=== PATIENT | male | born 1950 | race Caucasian/White ===

== ENCOUNTER → 2018-10-19 08:25 | Outpatient (CLI) | payer MEDICARE, SELFPAY ==
[2018-10-19 10:01] LABS: Prostate Specific Antigen Scrn 0.408 ng/mL (0.1-4.0)
== END ==
PROVIDERS: PCP Family Medicine; Visit Provider Family Medicine
DX: Z12.5 Encounter for screening for malignant neoplasm of prostate (principal)
CPT/HCPCS: 36415; G0103

== ENCOUNTER → 2019-10-25 09:02 | Outpatient (CLI) | payer MEDICARE, SELFPAY ==
[2019-10-25 09:56] LABS: Cholesterol 205 mg/dL (140-199); Glucose 84 mg/dL (80-110); HDL Cholesterol 52 mg/dL (40-60); LDL Cholesterol Calculated 142 mg/dL (<100); Triglycerides 53 mg/dL (35-150)
[2019-10-25 10:27] LABS: Prostate Specific Antigen Scrn 0.406 ng/mL (0.1-4.0)
== END ==
PROVIDERS: PCP Family Medicine; Visit Provider Family Medicine
DX: Z12.5 Encounter for screening for malignant neoplasm of prostate (principal); E78.00 Pure hypercholesterolemia, unspecified
CPT/HCPCS: 36415; 80061; 82947; G0103

== ENCOUNTER → 2020-11-04 09:12 | Outpatient (CLI) | payer MEDICARE, SELFPAY ==
[2020-11-04 10:10] LABS: Cholesterol 207 mg/dL (140-199); Glucose 98 mg/dL (80-110); HDL Cholesterol 66 mg/dL (40-60); LDL Cholesterol Calculated 131 mg/dL (<100); Triglycerides 50 mg/dL (35-150)
== END ==
PROVIDERS: PCP Family Medicine; Referring Provider Family Medicine; Visit Provider Family Medicine
DX: Z13.1 Encounter for screening for diabetes mellitus (principal); Z13.220 Encounter for screening for lipoid disorders
CPT/HCPCS: 80061; 82947

== ENCOUNTER → 2021-11-10 10:00 | Outpatient (CLI) | payer MEDICARE, SELFPAY ==
[2021-11-10 11:14] LABS: Cholesterol 209 mg/dL (140-199); Glucose 96 mg/dL (80-110); HDL Cholesterol 78 mg/dL (40-60); LDL Cholesterol Calculated 119 mg/dL (<100); Triglycerides 60 mg/dL (35-150)
[2021-11-10 11:46] LABS: Prostate Specific Antigen Scrn 0.426 ng/mL (0.1-4.0)
== END ==
PROVIDERS: PCP Family Medicine; Referring Provider Family Medicine; Visit Provider Family Medicine
DX: E78.00 Pure hypercholesterolemia, unspecified (principal); Z12.5 Encounter for screening for malignant neoplasm of prostate; Z00.00 Encounter for general adult medical examination without abnormal findings; Z13.9 Encounter for screening, unspecified
CPT/HCPCS: 36415; 80061; 82947; G0103